=== PATIENT | female | born 1985 | race Caucasian/White ===

== ENCOUNTER 2019-09-08 08:52 | Observation (INO) | payer OTHER ==
[~2019-09-08 08:52] MED LIST: DEXAMETHASONE SOD PHOSPHATE 10 MG/ML 1 ML VIAL IV ONE; HEPARIN SODIUM,PORCINE 5,000 UNIT/ML 1 ML VIAL SQ ONE; HYDROmorphone 0.5 MG/0.5 ML SYRINGE IVP PRN; LACTATED RINGERS 1,000 ML IV SCH; MIDAZOLAM 2 MG/2 ML VIAL IV PRN; ONDANSETRON 4 MG/2 ML VIAL IVP ONE
[2019-09-08] MEDS ORDERED: ONDANSETRON 4 MG/2 ML VIAL ONE (09:10)
[2019-09-08] MEDS ORDERED: HEPARIN SODIUM,PORCINE 5,000 UNIT/ML 1 ML VIAL ONE (09:10)
--- NOTE | 2019-09-08 09:20 | P.GSHP ---
History of Present Illness H&P Date: 09/08/19 Chief Complaint: GERD This a 34-year-old female referred from Dr. Yousif Sagastume. MThe patient has had long-standing problems with reflux esophagitis. The patient underwent recent EGD is found have evidence of esophagitis. Patient has been well informed on the procedure of laparoscopic Tati fundoplication. The patient is aware the risk of the conversion to the open procedure, risk of injury to the stomach, liver and spleen. The patient is also a risk of recurrent GERD and dysphagia symptoms. The patient understands there is a postoperative diet of full liquids for 2 weeks after surgery. Past Medical History Past Medical History: Asthma, COPD, GERD/Reflux, Hypertension Additional Past Medical History / Comment(s): hx Endometriosis, vitamin D deficiency, migraines, hiatal hernia, ulcer, History of Any Multi-Drug Resistant Organisms: None Reported Past Surgical History: Section, Hysterectomy, Tonsillectomy Additional Past Surgical History / Comment(s): naila oophorectomy after hysterectomy, wisdom teeth extraction. ingrown toenail removed from naila great toes Past Anesthesia/Blood Transfusion Reactions: Family History of Problems w/ Anesthesia Additional Past Anesthesia/Blood Transfusion Reaction / Comment(s): family membe rs have problems waking up Smoking Status: Current every day smoker - Past Family History Father History Unknown: Yes Mother Family Medical History: Cancer Additional Family Medical History / Comment(s): hx blood clot in arm Brother(s) Additional Family Medical History / Comment(s): Patient states she has 3 stepbrothers and 3 stepsisters. She has 2 daughters. Patient is single. Medications and Allergies Home Medications Medication Instructions Recorded Confirmed Type Cetirizine HCl 10 mg PO DAILY 09/03/19 09/08/19 History Docusate Sodium [Dok] 100 mg PO DAILY 09/03/19 09/08/19 History Ergocalciferol [Vitamin D2] 50,000 unit PO ALDANA 09/03/19 09/08/19 History Estrogens, Conjugated [Premarin] 0.625 mg PO DAILY 09/03/19 09/08/19 History Omeprazole 20 mg PO AC-SUPPER PRN 09/03/19 09/08/19 History Omeprazole [PriLOSEC] 40 mg PO DAILY 09/03/19 09/08/19 History Paliperidone Palmitate [Invega 819 mg IM Q90D 09/03/19 09/08/19 History Trinza] buPROPion HCL [Wellbutrin XL] 300 mg PO DAILY 09/03/19 09/08/19 History cloNIDine HCL [Catapres] 0.1 mg PO BID PRN 09/03/19 09/08/19 History Allergies Allergy/AdvReac Type Severity Reaction Status Date / Time latex Allergy Rash/Hives Verified 09/08/19 09:07 pineapple Allergy Vomiting Verified 09/08/19 09:07 migraine medication Allergy Severe Unknown Uncoded 09/08/19 09:07 antibiotics Allergy Rash/Hives Uncoded 09/08/19 09:07 Surgical - Exam - General well developed, well nourished, no distress - Eyes PERRL - ENT normal pinna - Neck no masses - Respiratory normal expansion - Cardiovascular Rhythm: regular - Abdomen Abdomen: soft, non tender Assessment and Plan Assessment: GERD. We'll perform laparoscopic Tati fundal plication.
[2019-09-08] MEDS: LACTATED RINGERS 1,000 ML IV SCH ×2 (09:33→11:43)
[2019-09-08] MEDS ORDERED: diphenhydrAMINE 50 MG/ML 1 ML VIAL ONE (09:39)
[2019-09-08] MEDS ORDERED: diphenhydrAMINE 50 MG/ML 1 ML VIAL IVP ONE (09:40)
[2019-09-08] MEDS ORDERED: LIDOCAINE 1% INJ 10MG/ML (20 ML MDV) ONE (09:43)
[2019-09-08] MEDS ORDERED: KETOROLAC 30 MG/ML 1 ML VIAL ONE (09:43)
[2019-09-08] MEDS ORDERED: HYDROmorphone (PF) 1 MG/ML ONE (09:43)
[2019-09-08] MEDS ORDERED: GLYCOPYRROLATE 0.2 MG/ML 2 ML VIAL ONE (09:43)
[2019-09-08] MEDS ORDERED: PROPOFOL 10 MG/ML 20 ML VIAL IV ONE (09:43)
[2019-09-08] MEDS ORDERED: MIDAZOLAM 2 MG/2 ML VIAL ONE (09:43)
[2019-09-08] MEDS ORDERED: ROCURONIUM BROMIDE 10 MG/ML 5 ML VIAL IV ONE (09:43)
[2019-09-08] MEDS ORDERED: SUCCINYLCHOLINE CHLORIDE 100 MG/5 ML SYR IV ONE (09:43)
[2019-09-08] MEDS ORDERED: NEOSTIGMINE 1 MG/ML 10 ML VIAL ONE (09:43)
[2019-09-08] MEDS ORDERED: fentaNYL (PF) 50 MCG/ML 2 ML AMP ONE (09:43)
[2019-09-08] MEDS ORDERED: KETAMINE 10 MG/ML 20 ML VIAL ONE (09:43)
[2019-09-08] MEDS ORDERED: BUPIVACAIN-EPI 0.25%-1:200,000 30 ML VIAL SQ ONE (10:22)
[2019-09-08] MEDS ORDERED: LACTATED RINGERS 1,000 ML IV ONE (10:55)
[2019-09-08] MEDS ORDERED: ONDANSETRON 4 MG/2 ML VIAL IVP PRN (11:08)
--- NOTE | 2019-09-08 11:20 | P.OP ---
Date of Procedure: 09/08/19 Preoperative Diagnosis: GERD Postoperative Diagnosis: GERD Procedure(s) Performed: Laparoscopic Tati fundal plication Anesthesia: MINOR Surgeon: Shekhar Koehler Estimated Blood Loss (ml): 5 Pathology: none sent Condition: stable Disposition: PACU Description of Procedure: HarmThe patient was placed on the operating table in the supine position. The patient received general anesthesia. And was placed in dorsal lithotomy position. The patient was prepped and draped in the usual sterile fashion. The skin incision sites were anesthetized with 1% local Xylocaine. The skin was incised in the left periumbilical area and then using a blade less 5 mm trocar under direct visualization panel cavity was entered. After adequate insufflation the laparoscope was then placed into the peritoneal cavity. Next a 5 mm trochars placed in the right epigastric position. Another 5 millimeter trocar the right lateral position. Another 5 millimeter trocar in the left lateral position a 5 mm trocar is placed in the left epigastric position. And then the initial 5 mm trocar was exchanged for a 10 mm trocar. The left lateral lobe liver was retracted. The hernia was seen. The crural defect was then dissected using the Harmonic scissors device. A 360 crural dissection was performed the esophagus stomach was reduced back into the peritoneal Cavity. The crural defect was then closed using 2-0 Ethibond suture. Next the fundus of the stomach was mobilized using the [place] scissors device. and then a 58- [place]ian bougie dilator was placed oropharynx passed into the esophagus and stomach the fundal plication wrap was then performed by grasping the fundus p osteriorly and bringing it around the esophagus and stomach fundoplication was then performed using 2-0 Ethibond suture. Care was taken that the fundal location rested over top of the intra-abdominal esophagus. There was no injury seen to the stomach or esophagus. The dilator was then withdrawn. The abdomen was irrigated there is no bleeding seen. The trochars were then withdrawn and then skin incision sites were closed using 3-0 Monocryl suture Steri-Strips are applied. Patient thought procedure well and sent to recovery room in stable condition.ine
[2019-09-08] MEDS: D5-0.45% NACL WITH KCL 20MEQ/L 1,000 ML IV SCH ×2 (12:27→20:02)
[2019-09-08] MEDS ORDERED: PALIPERIDONE PALMITATE 819 MG IM SCH (13:30)
[2019-09-08] MEDS: HYDROmorphone 1 MG/ML 1 ML SYRINGE IVP PRN ×2 (14:29→20:03)
--- NOTE | 2019-09-08 15:29 | FL ---
EXAMINATION TYPE: FL esophagus cervic/pharynx DATE OF EXAM: 09/08/2019 HISTORY: Status post Tati fundoplication COMPARISON: NONE TECHNIQUE: A single contrast esophagram is performed utilizing air and barium. FINDINGS: Attention directed to the level of the gastroesophageal junction. Patient shows post Tati fundoplic ation change. There is no evident obstruction or leak. 32 seconds fluoroscopy time. 2 images obtained . IMPRESSION: No significant abnormality to suggest postop complication.
--- NOTE | 2019-09-08 15:52 | P.CONS ---
History of Present Illness - Reason for Consult Recommendations regarding antihypertensive medications - History of Present Illness Patient is a pleasant 32-year-old the female admitted for elective Tati fundoplication and I saw her in the immediate postoperative period still coming of deafness seizure is bit nauseous. Patient denied any fever chills nausea vomiting abdominal pain. Patient is on estrogen supplementation post hysterectomy. Review of Systems REVIEW OF SYSTEMS: CONSTITUTIONAL: No fever, no malaise, no fatigue. HEENT: No recent visual problems or hearing problems. Denied any sore throat. CARDIOVASCULAR: No chest pain, orthopnea, PND, no palpitations, no syncope. PULMONARY: No shortness of breath, no cough, no hemoptysis. GASTROINTESTINAL: No diarrhea, no vomiting, no abdominal pain. NEUROLOGICAL: No headaches, no weakness, no numbness. HEMATOLOGICAL: Denies any bleeding or petechiae. GENITOURINARY: Denies any burning micturition, frequency, or urgency. MUSCULOSKELETAL/RHEUMATOLOGICAL: Denies any joint pain, swelling, or any muscle pain. ENDOCRINE: Denies any polyuria or polydipsia. The rest of the 14-point review of systems is negative. Past Medical History Past Medical History: Asthma, COPD, GERD/Reflux, Hypertension Additional Past Medical History / Comment(s): hx Endometriosis, vitamin D deficiency, migraines, hiatal hernia, ulcer, History of Any Multi-Drug Resistant Organisms: None Reported Past Surgical History: Section, Hysterectomy, Tonsillectomy Additional Past Surgical History / Comment(s): naila oophorectomy after hysterectomy, wisdom teeth extraction. ingrown toenail removed from naila great toes Past Anesthesia/Blood Transfusion Reactions: Family History of Problems w/ Anesthesia Additional Past Anesthesia/Blood Transfusion Reaction / Comm: family members have problems waking up Past Psychological History: Anxiety, Bipolar, Depression, PTSD Smoking Status: Current every day smoker Past Alcohol Use History: None Reported Additional Past Alcohol Use History / Comment(s): smokes 1/2 PPD, for 22 yrs Past Drug Use History: None Reported Additional Drug Use History / Comment(s): denies - Past Family History Father History Unknown: Yes Mother Family Medical History: Cancer Additional Family Medical History / Comment(s): hx blood clot in arm Brother(s) Additional Family Medical History / Comment(s): Patient states she has 3 stepbrothers and 3 stepsisters. She has 2 daughters. Patient is single. Medications and Allergies Home Medications Medication Instructions Recorded Confirmed Type Cetirizine HCl 10 mg PO DAILY 09/03/19 09/08/19 History Docusate Sodium [Dok] 100 mg PO DAILY 09/03/19 09/08/19 History Ergocalciferol [Vitamin D2] 50,000 unit PO ALDANA 09/03/19 09/08/19 History Estrogens, Conjugated [Premarin] 0.625 mg PO DAILY 09/03/19 09/08/19 History Omeprazole 20 mg PO AC-SUPPER PRN 09/03/19 09/08/19 History Omeprazole [PriLOSEC] 40 mg PO DAILY 09/03/19 09/08/19 History Paliperidone Palmitate [Invega 819 mg IM Q90D 09/03/19 09/08/19 History Trinza] buPROPion HCL [Wellbutrin XL] 300 mg PO DAILY 09/03/19 09/08/19 History cloNIDine HCL [Catapres] 0.1 mg PO BID PRN 09/03/19 09/08/19 History Allergies Allergy/AdvReac Type Severity Reaction Status Date / Time latex Allergy Rash/Hives Verified 09/08/19 09:07 pineapple Allergy Vomiting Verified 09/08/19 09:07 migraine medication Allergy Severe Unknown Uncoded 09/08/19 09:07 antibiotics Allergy Rash/Hives Uncoded 09/08/19 09:07 Physical Exam Vitals: Vital Signs Temp Pulse Pulse Pulse Resp BP BP 09/08/19 15:35 76 18 137/83 09/08/19 14:35 74 18 134/85 09/08/19 13:35 76 16 133/88 09/08/19 13:05 76 18 153/96 09/08/19 12:35 72 18 138/88 09/08/19 12:20 79 18 133/86 09/08/19 12:05 81 18 126/86 09/08/19 11:50 98.2 F 76 18 142/97 09/08/19 11:29 86 14 177/71 09/08/19 11:14 88 14 185/90 09/08/19 10:59 97.4 F L 100 100 16 176/86 09/08/19 09:24 98.4 F 96 16 159/86 Pulse Ox 09/08/19 15:35 93 L 09/08/19 14:35 93 L 09/08/19 13:35 93 L 09/08/19 13:05 93 L 09/08/19 12:35 95 09/08/19 12:20 94 L 09/08/19 12:05 96 09/08/19 11:50 93 L 09/08/19 11:29 100 09/08/19 11:14 100 09/08/19 10:59 99 09/08/19 09:24 100 Intake and Output 09/08/19 09/08/19 09/08/19 06:59 14:59 22:59 Intake Total 1250 Output Total 50 Balance 1200 Intake: IV 1250 Output: Estimated Blood Loss 50 Other: Weight 118 kg PHYSICAL EXAMINATION: GENERAL: The patient is drowsy and oriented x3, not in any acute distress. Obese HEENT: Pupils are round and equally reacting to light. EOMI. No scleral icterus. No conjunctival pallor. Normocephalic, atraumatic. No pharyngeal erythema. No thyromegaly. CARDIOVASCULAR: S1 and S2 present. No murmurs, rubs, or gallops. PULMONARY: Chest is clear to auscultation, no wheezing or crackles. ABDOMEN: Soft, abdominal binder in place MUSCULOSKELETAL: No joint swelling or deformity. EXTREMITIES: No cyanosis, clubbing, or pedal edema. NEUROLOGICAL: Gross neurological examination did not reveal any focal deficits. SKIN: No rashes. Assessment and Plan Plan: -Hypertension: Patient is on clonidine on as-needed basis which will be held and will monitor her blood pressure depending on her blood pressure patient will be started on antidepressant medications. -Gastroesophageal reflux disease patient will be resumed on proton pump inhibitor -COPD without any significant exacerbation nicotine cessation counseling was provided -Status post hysterectomy patient is on hormone supplementation if agreeable by general surgery and patient will be started on this medication -Laparoscopic Tati's fundoplication: Pain medication postoperative management due to prophylaxis per primary service
[2019-09-08] MEDS ORDERED: KETOROLAC 30 MG/ML 1 ML VIAL IVP PRN (16:26)
[2019-09-08] MEDS: HEPARIN SODIUM,PORCINE 5,000 UNIT/ML 1 ML VIAL SQ SCH (20:03)
[2019-09-09] MEDS: D5-0.45% NACL WITH KCL 20MEQ/L 1,000 ML IV SCH (05:04)
[2019-09-09] MEDS: HYDROmorphone 1 MG/ML 1 ML SYRINGE IVP PRN (05:04)
[2019-09-09 08:05] VITALS: BP 112/58; PULSE 82; RESP 16; TEMP 97.6
[2019-09-09] MEDS: HEPARIN SODIUM,PORCINE 5,000 UNIT/ML 1 ML VIAL SQ SCH (08:12)
[2019-09-09] MEDS ORDERED: PANTOPRAZOLE 40 MG/10 ML VIAL IVP SCH (09:00)
[2019-09-09] MEDS ORDERED: buPROPion XL 300 MG TAB.ER.24H PO SCH (09:00)
[2019-09-09 11:03] VITALS: BMI 47.5
--- NOTE | 2019-09-09 11:25 | P.DS ---
Providers Date of admission: 09/09/19 05:37 Expected date of discharge: 09/09/19 Attending physician: Shekhar Koehler Consults: 09/08/19 11:08 Consult Physician Routine Consulting Provider: Alicia Castelan Consult Reason/Comments: Medical management Do you want consulting provider notified?: Yes Primary care physician: Yousif Sagastume MD Hospital Course: This is a 34-year-old female who underwent laparoscopic Tati fundoplication on 09/08/2019. Patient's postoperative arrival. Please see chart for details. Procedures: Laparoscopic Tati fundal plication Patient Condition at Discharge: Good Plan - Discharge Summary Discharge Rx Participant: No New Discharge Prescriptions: New Docusate [Colace] 100 mg PO BID #20 capsule HYDROcodone/APAP 5-325MG [Mather 5-325] 1 tab PO Q6HR PRN #10 tab PRN Reason: Pain No Action Omeprazole [PriLOSEC] 40 mg PO DAILY Omeprazole 20 mg PO AC-SUPPER PRN PRN Reason: Heartburn Cetirizine HCl 10 mg PO DAILY Estrogens, Conjugated [Premarin] 0.625 mg PO DAILY Ergocalciferol [Vitamin D2] 50,000 unit PO ALDANA buPROPion HCL [Wellbutrin XL] 300 mg PO DAILY Paliperidone Palmitate [Invega Trinza] 819 mg IM Q90D Docusate Sodium [Dok] 100 mg PO DAILY cloNIDine HCL [Catapres] 0.1 mg PO BID PRN PRN Reason: Anxiety Discharge Medication List Cetirizine HCl 10 mg PO DAILY 09/03/19 [History] Docusate Sodium [Dok] 100 mg PO DAILY 09/03/19 [History] Ergocalciferol [Vitamin D2] 50,000 unit PO ALDANA 09/03/19 [History] Estrogens, Conjugated [Premarin] 0.625 mg PO DAILY 09/03/19 [History] Omeprazole 20 mg PO AC-SUPPER PRN 09/03/19 [History] Omeprazole [PriLOSEC] 40 mg PO DAILY 09/03/19 [History] Paliperidone Palmitate [Invega Trinza] 819 mg IM Q90D 09/03/19 [History] buPROPion HCL [Wellbutrin XL] 300 mg PO DAILY 09/03/19 [History] cloNIDine HCL [Catapres] 0.1 mg PO BID PRN 09/03/19 [History] Docusate [Colace] 100 mg PO BID #20 capsule 09/09/19 [Rx] HYDROcodone/APAP 5-325MG [Mather 5-325] 1 tab PO Q6HR PRN #10 tab 09/09/19 [Rx] Follow up Appointment(s)/Referral(s): Shekhar Koehler MD [STAFF PHYSICIAN] - 09/23/19 1:10 pm (You have a follow up appointment with Dr Koehler on Monday, September 23, 2019 at 1:10 pm.) Patient Instructions/Handouts: *Surgery [facility] - ([facility]) Lap Tati Fundiplication Post-Op Instructions, Pain Management After Surgery (DC), Narcotic Safety (DC) Activity/Diet/Wound Care/Special Instructions: Activity as tolerated, rest as needed. No driving. No hot tubs, no pools, no swimming, no bath tubs. No house work. No lifting anything heavier than a gallon of milk. Drink plenty of fluids. Full liquid diet for [address] Koehler if you develop a fever or chills, increase in pain, inability to urinate, vomiting, or if you have any other questions or concerns.
== END 2019-09-09 12:27 | disposition home or self-care (01) ==
LOC: OR 08:52 → 6PED 11:38 → OR 09-09 05:37 → 6PED 09-09 05:37
PROVIDERS: ADMIT Surgery; ATTEND Surgery
DX: K21.0 Gastro-esophageal reflux disease with esophagitis (principal); J44.9 Chronic obstructive pulmonary disease, unspecified; I10 Essential (primary) hypertension; E55.9 Vitamin D deficiency, unspecified; F43.10 Post-traumatic stress disorder, unspecified; F31.9 Bipolar disorder, unspecified; F41.9 Anxiety disorder, unspecified; F17.210 Nicotine dependence, cigarettes, uncomplicated; Z90.710 Acquired absence of both cervix and uterus; Z79.899 Other long term (current) drug therapy; Z79.890 Hormone replacement therapy; Z88.1 Allergy status to other antibiotic agents; Z91.040 Latex allergy status; Z88.8 Allergy status to other drugs, medicaments and biological substances; Z91.018 Allergy to other foods; Z84.89 Family history of other specified conditions; Z80.9 Family history of malignant neoplasm, unspecified; Z82.49 Family history of ischemic heart disease and other diseases of the circulatory system
CPT/HCPCS: 74210; 43280; G0378; J1200; J1644 ×2; J1100; J0690; J2405; J1170 ×2; C9113; Q9967

== ENCOUNTER → 2020-10-04 | Outpatient (CLI) | payer OTHER ==
--- NOTE | 2020-10-05 07:02 | CT ---
EXAMINATION TYPE: CT chest w con DATE OF EXAM: 10/04/2020 COMPARISON: Chest x-ray June 02, 2014 HISTORY: Hx Covid pneumonia, pt c/o SOB, cough CT DLP: 478.10 mGycm. Automated Exposure Control for Dose Reduction was Utilized. TECHNIQUE: CT scan of the thorax is performed following with IV Contrast, patient injected with 100 mL of Isovue 300. FINDINGS: LUNGS: The lungs are grossly clear, there is no concerning suspicious groundglass opacity or focal co nsolidation. No greater than 5 mm pulmonary nodules or masses. Tiny bibasilar pleural effusions are seen. No pneumothorax seen bilaterally The tracheobronchial tree is patent. MEDIASTINUM: There are no greater than 1 cm hilar or mediastinal lymph nodes. Tiny anterior inferior pericardial effusion is seen. No cardiomegaly. OTHER: Surgical changes near diaphragmatic hiatus presumed from Alberto fundoplication surgical repair . Hemangioma involving T5 vertebra. IMPRESSION: Tiny basilar bilateral pleural effusions. No acute focal infiltrate. No significant chron ic parenchymal changes.
== END | disposition home or self-care (01) ==
LOC: RADCTMAIN 15:07
PROVIDERS: ATTEND Internal Medicine Critical Care Medicine
DX: J90 Pleural effusion, not elsewhere classified (principal); Z86.16 Personal history of COVID-19
CPT/HCPCS: 71260; Q9967

== ENCOUNTER 2020-10-15 11:46 | Day surgery (SDC) | payer OTHER ==
[2020-10-14 11:31] VITALS: BMI 43.9
[~2020-10-15 11:46] MED LIST changes: +ALBUTEROL NEB (CONC) 2.5 MG/0.5 ML INHALATION ONE; +ATROPINE SULFATE 0.4 MG/ML 1 ML VIAL IM ONE; -DEXAMETHASONE SOD PHOSPHATE 10 MG/ML 1 ML VIAL IV ONE; -HEPARIN SODIUM,PORCINE 5,000 UNIT/ML 1 ML VIAL SQ ONE; -HYDROmorphone 0.5 MG/0.5 ML SYRINGE IVP PRN; +LIDOCAINE 2% (PF) 20 MG/ML 5 ML VIAL INHALATION ONE; +LIDOCAINE VISCOUS 300 MG/15 ML CUP MUCOUS MEM ONE; -MIDAZOLAM 2 MG/2 ML VIAL IV PRN; -ONDANSETRON 4 MG/2 ML VIAL IVP ONE
[2020-10-15] MEDS ORDERED: LACTATED RINGERS 1,000 ML IV ONE (12:11)
[2020-10-15] MEDS ORDERED: LIDOCAINE 1% INJ 10MG/ML (20 ML MDV) ONE (12:43)
[2020-10-15] MEDS ORDERED: PROPOFOL 10 MG/ML 20 ML VIAL IV ONE (12:43)
[2020-10-15] MEDS ORDERED: KETAMINE 10 MG/ML 20 ML VIAL ONE (12:43)
[2020-10-15] MEDS ORDERED: LIDOCAINE 2% INJ 20 MG/ML INTRATRACH ONE (12:57)
[2020-10-15 13:25] VITALS: BP 155/70; PULSE 100; RESP 22
--- NOTE | 2020-10-15 20:12 | OP ---
OPERATIVE REPORT PULMONARY/CRITICAL CARE PROCEDURE NOTE: PROCEDURE: Bronchoscopy, airway examination, therapeutic lavage, BAL. PREOPERATIVE DIAGNOSIS: Chronic cough and shortness of breath. POSTOPERATIVE DIAGNOSIS: Chronic cough and shortness of breath. OPERATORS: 1. Dr. Hale. 2. Dr. Gore. Shira Leija CRNA, provided general anesthesia. The patient's procedure was done in room #1 Endoscopy. There was informed consent and universal timeout. After the patient was adequately sedated and being fully monitored, the bronchoscope was inserted through the patient's right nostril. It passed through the nasopharynx into the oropharynx. The hypopharynx was identified and topicalized. The hypopharyngeal structures, including anterior commissure, true cords, false cords, arytenoids, valleculae, epiglottis and other structures all appeared normal. The hypopharynx was crowded. After topicalization, the bronchoscope was pushed through the glottic opening into the trachea. The trachea appeared relatively normal. The tracheal maddie was sharp. Next, there was topicalization of the right mainstem and left mainstem. The right upper lobe and its 3 segments, the right middle lobe and its 2 segments, the right lower lobe and its 5 segments, the left upper lobe proper and its 2 segments, the lingula and its 2 segments, and the left lower lobe and its 4 segments all had similar findings of moderate bronchitis. There was diffuse erythema and hyperemia of the airways. There were some secretions noted throughout. They were mostly thin and frothy. There was no dominant mass or tumor. There was some mucosal friability. The bronchoscope was wedged into the right middle lobe. The BAL took place. There was no immediate complication. The fluid was sent for analysis. Additional secretions were suctioned. The patient tolerated the procedure well without difficulty. The bronchoscope was withdrawn. The patient will be recovered. MMODL / IJN: [id number] /
[2020-10-15 22:29] LABS: Appearance,BF Hazy; Nucleated Cells, Body Fluid 15 /uL; RBC, Body Fluid 65 /uL
== END 2020-10-15 13:35 | disposition home or self-care (01) ==
LOC: ORWHC2ENDO 11:46
PROVIDERS: ATTEND Internal Medicine Critical Care Medicine
DX: R06.02 Shortness of breath (principal); R05 Cough; Z86.16 Personal history of COVID-19; I10 Essential (primary) hypertension; J44.9 Chronic obstructive pulmonary disease, unspecified; F17.210 Nicotine dependence, cigarettes, uncomplicated; F43.10 Post-traumatic stress disorder, unspecified; G43.909 Migraine, unspecified, not intractable, without status migrainosus; K21.9 Gastro-esophageal reflux disease without esophagitis; Z79.51 Long term (current) use of inhaled steroids; Z91.040 Latex allergy status
CPT/HCPCS: 31624; 88108; 88305; 89050; 87252; 87070; 87205; 87116; 87102; 87206; J2001 ×2; J0461; J2704; 87496; 87498; 87502; 87529; 87634; 87798

== ENCOUNTER → 2023-11-28 | Outpatient (CLI) | payer OTHER ==
[2023-11-28 14:09] VITALS: BP 127/88; PULSE 80; RESP 16; TEMP 98.4
--- NOTE | 2023-11-28 15:06 | P.SLEEP ---
History of Present Illness DATE: 11/28/2023 CONSULTATION/NEW PATIENT EVALUATION HISTORY OF PRESENT ILLNESS/SLEEP-WAKE EVALUATION: 68-year-old lady had been e valuated in the sleep center for possible obstructive sleep apnea hypopnea syndrome. SLEEP SCHEDULE: Usually sleep schedule from 8 PM to 5:30 AM on weekdays and from 10 PM to 8 AM on weekend. FALLING ASLEEP: No problems with falling asleep. DURING SLEEP: Patient snores and wakes up from sleep 3 times with nocturia no history of hypnogogical hallucinations, sleep paralysis, or cataplexy. DURING THE DAY/WAKE STATE: In the morning patient wake up tired, has difficulties to pay attention, has problems with memory, concentration, irritability depression. [place] sleepiness scale is 9. Patient may take 2 naps during the day. PAST MEDICAL HISTORY: Bipolar, asthma. PAST SURGICAL HISTORY: Hysterectomy, hernia repair. MEDICATIONS: Please see below. SOCIAL HISTORY: Please see below. FAMILY HISTORY: Heart problems, epilepsy, stroke, fibromyalgia, cancer, insomnia, thyroid problems, diabetes, mental illness. REVIEW OF SYSTEMS: Snoring, multiple awakenings from sleep, sleepiness during the day. No fevers. No double vision. No recent chest pain. No shortness of breath. No abdominal pain. No bleeding episodes. No blood in urine. No seizure episodes. PHYSICAL EXAMINATION: GENERAL: A pleasant patient without any distress. VITAL SIGNS: Please see below, weight 236 pounds, BMI 43.1. HEENT: PERRLA, EOMI. Evaluation of oropharynx showed tongue protrudes midline, low position of soft palate Mallampati 4. NECK: Supple. No JVD. Thyroid is not palpable. 15 inches in circumference. LUNGS: Clear to percussion and to auscultation. Good air exchange. No wheezing or rhonchi. HEART: S1, S2 regular. No murmurs, gallops or rubs. ABDOMEN: Soft and nontender. Bowel sounds are present. No organomegaly appreciated. EXTREMITIES: No clubbing or cyanosis. RECREATION LEADER: Awake, alert, and oriented x3. Cranial nerves 2 to 7 intact. There is no fasciculation or atrophy noted. No focal deficits observed. ASSESSMENT: 1. Loud snoring, multiple awakenings from sleep, extremely low position of soft palate Mallampati 4, sleepiness. Obstructive sleep apnea hypopnea syndrome. 2. Obesity, BMI 43.1. 3. Bipolar. 4. Asthma. 5 status post hysterectomy. 6 . Status post hernia repair. PLAN: 1. Polysomnography for evaluation of patient's breathing during sleep. 2. Following plan after reading sleep study. 3. Preferable position during sleep on the side. 4. No driving if patient feels any sleepiness. Patient is aware of civil and criminal liability for unsafe driving. 5. Sleep hygiene with regular sleep time for at least 7.5-8 hours. 6. Watching and losing weight. Thank you very much for referring this patient for consultation. Sincerely, Del Garcia MD, PhD, FAASM. Diplomat of [employer], Sleep Medicine Board by [employer] [facility] [place] cc: Gudelia Hardin Past Medical History Past Medical History: Asthma, COPD, GERD/Reflux, Hypertension Additional Past Medical History / Comment(s): SOB and coughing,hx Endometriosis, vitamin D deficiency, migraines, hiatal hernia, ulcer History of Any Multi-Drug Resistant Organisms: None Reported Past Surgical History: Section, Hysterectomy, Tonsillectomy Additional Past Surgical History / Comment(s): naila oophorectomy after hysterectomy, wisdom teeth extraction. ingrown toenail removed from naila great toes,hiatal hernia repair Past Anesthesia/Blood Transfusion Reactions: Family History of Problems w/ Anesthesia Additional Past Anesthesia/Blood Transfusion Reaction / Comment(s): family members have problems waking up Past Psychological History: Anxiety, Bipolar, Depression, PTSD Smoking Status: Current every day smoker Past Alcohol Use History: None Reported Additional Past Alcohol Use History / Comment(s): smokes 1 PPD, for 22 yrs Past Drug Use History: None Reported Additional Drug Use History / Comment(s): denies - Past Family History Daughter(s) Family Medical History: Asthma, GERD/Reflux, Sleep Apnea/CPAP/BIPAP Additional Family Medical History / Comment(s): epilepsy, snoring Father History Unknown: Yes Family Medical History: No Reported History Mother Family Medical History: Cancer, Coronary Artery Disease (CAD), Hyperlipidemia, Hypertension Additional Family Medical History / Comment(s): hx blood clot in arm Brother(s) Additional Family Medical History / Comment(s): Patient states she has 3 stepbrothers and 3 stepsisters. She has 2 daughters. Patient is single. Medications and Allergies Home Medications Medication Instructions Recorded Confirmed Type Albuterol Sulfate [Proair Hfa] 1 - 2 puff INHALATION Q6HR PRN 10/14/20 11/28/23 History Paliperidone Palmitate [Invega 819 mg IM Q90D 10/14/20 11/28/23 History Trinza] Sertraline [Zoloft] 50 mg PO QAM 10/14/20 10/14/20 History Semaglutide [Wegovy] 0.5 mg SQ WEEKLY 11/28/23 11/28/23 History Allergies Allergy/AdvReac Type Severity Reaction Status Date / Time latex Allergy Rash/Hives Verified 10/14/20 11:25 pineapple Allergy Vomiting Verified 10/14/20 11:25 migraine medication Allergy Severe Unknown Uncoded 10/14/20 11:25 antibiotics Allergy Rash/Hives Uncoded 10/14/20 11:25 Physical Exam Vitals: Vital Signs Temp Pulse Resp BP Pulse Ox 11/28/23 14:08 98.4 F 80 16 127/88 97 Intake and Output 11/28/23 11/28/23 11/28/23 06:59 14:59 22:59 Other: Weight 107.048 kg Sleep Note - Sleep Data ESS Total: 9 - Sleep Note Sleep Note: Temperature: 98.4 F Pulse Rate: 80 Respiratory Rate: 16 Blood Pressure: 127/88 SpO2: 97 Height: 5 ft 2 in Weight: 107.048 kg BMI: Neck Circumference: 15
== END ==
LOC: 3 N SLEEP 13:46
PROVIDERS: ATTEND Internal Medicine
CPT/HCPCS: 99211

== ENCOUNTER 2023-12-13 19:35 | Outpatient (CLI) | payer OTHER ==
--- NOTE | 2023-12-19 15:03 | P.PCN ---
Description of Procedure: POLYSOMNOGRAPHY REPORT PROCEDURE(S)/DATE(S): Polysomnography 12/13/2023 CLINICAL: Patient has been seen in the sleep center for evaluation of obstructive sleep apnea-hypopnea syndrome. Please see my consultation. Sleep study has been done for evaluation of patient breathing during the sleep. PROCEDURE: The standard montage for clinical polysomnography included the electroencephalogram, the electrooculogram, the mentalis surface electromyography and Lead II cardiography. The respiratory battery consisted of measurements of nasal/buccal air flow, pressure transducer measurements from nose, thoracic and/or abdominal effort and intercostal surface electromyography. Video monitoring has been done to check for any parasomnia events. Nocturnal oxyhemoglobin saturations were obtained by finger oximetry. Step-hobbs titration with positive airway pressure was utilized to control the respiratory events, if necessary. RESULTS: During the diagnostic sleep study sleep efficiency was slightly decreased to 85.5%. Latency to sleep onset was borderline 27.5 min. Sleep architecture showed stage NI was slightly short 3.6%, Delta sleep was normal at 10.4%, REM sleep was normal 20.7%. Respiratory channel showed 7 obstructive apneas, 0 mixed apneas, 19 central apneas, 87 hypopneas with lowest oxygen level 81%. Total apnea hypopnea index was 16.9. Heart rate was in the range between 59 and 72, average 65. EMG showed 24.1 periodic limb movements per hour with 0.4 micro-arousals per hour. IMPRESSIONS: 1. Moderate obstructive sleep apnea hypopnea syndrome. 2. Moderate periodic limb movements have been documented. Please see other impressions from consultation PLAN: 1. The patient will have PAP titration for correction of respiratory abnormalities during the sleep. 2. Losing weight program. 3. Sleep hygiene with regular time in bed for at least 7-1/2 hours. 4. No driving if feeling sleepiness. 5. Please check iron profile including ferritin level. Low level of iron may increase the risk for periodic limb movements. Thank you very much for allowing me to participate in the management of your patient. Sincerely, Del Garcia MD, PhD, FAASM. Diplomat of [employer], Sleep Medicine Board by [employer] Unit Director of [facility] [place] cc: Gudelia Madison MD
== END 2023-12-14 05:00 | disposition home or self-care (01) ==
LOC: 3 N SLEEP 19:35
PROVIDERS: ATTEND Internal Medicine
CPT/HCPCS: 95810

== ENCOUNTER 2024-01-13 19:33 | Outpatient (CLI) | payer OTHER ==
--- NOTE | 2024-01-16 11:31 | P.PCN ---
Description of Procedure: CLINICAL: Titration with positive air pressure has been done for correction of respiratory abnormalities during sleep. DESCRIPTION OF PROCEDURE: The standard montage for clinical polysomnography included the electroencephalogram, the electrocardiogram, the mentalis surface electromyography and Lead II cardiography. The respiratory battery consisted of measurements of nasal /buccal air flow, pressure transducer measurements from the nose, thoracic and /or abdominal effort and intercostal surface electromyography. Video monitoring has been done to check for any parasomnia events. Nocturnal oxyhemoglobin saturations were obtained by finger oximetry. Step-hobbs titration with positive airway pressure was utilized to control respiratory events. Raw data of sleep recording has been reviewed and is adequate. RESULTS: Sleep efficiency was slightly decreased to 84.7%. Latency to sleep onset was normal 19.0 minutes.]. Sleep architecture showed stage N1 was slightly short 3.7%, Delta sleep was absent 0%, REM sleep was normal 23.0%. Heart rate was minimum 65 BPM, maximum 75 BPM, average 70 BPM. EMG showed 2.9 periodic limb movements per hour with 0.3 micriarousals per hour. PAP titration have been done with CPAP up to the pressure 10 cm H2O. The best results were at the pressure 9 cm H2O. Apnea hypopnea index reduced to 0.9. IMPRESSION: 1. Obstructive sleep apnea hypopnea syndrome mostly on controle with PAP treatment. 2. No significant periodic limb movements have been documented. Please see other impressions from consultation. PLAN: 1. The patient will have treatment with positive air pressure equipment with the level of pressure AutoPAP 5-10 cm H2O and should use it every night for the whole night. 2. Watching and losing weight. 3. Sleep hygiene with regular time in bed for at least 8 hours. 4. No driving if feeling any sleepiness. 5. I will see the patient for follow up visit to explain the results of the test, recommendations, check compliance with treatment and make any necessary adjustment related to mask fitting, pressure and humidification. Thank you very much for allowing me to participate in the management of your patient. Sincerely, Del Garcia MD, PhD, FAASM Diplomat of [employer] Sleep Medicine Board of [employer] Relations Mgr of [facility] [place] cc: Gudelia Madison MD
== END 2024-01-14 05:15 | disposition home or self-care (01) ==
LOC: 3 N SLEEP 19:33
PROVIDERS: ATTEND Internal Medicine
DX: G47.33 Obstructive sleep apnea (adult) (pediatric) (principal); F17.200 Nicotine dependence, unspecified, uncomplicated; Z88.1 Allergy status to other antibiotic agents; Z91.040 Latex allergy status; Z91.018 Allergy to other foods; Z88.8 Allergy status to other drugs, medicaments and biological substances
CPT/HCPCS: 95811

== ENCOUNTER → 2024-04-02 | Outpatient (CLI) | payer OTHER ==
[2024-04-02 14:58] VITALS: BP 134/84; PULSE 88; RESP 18; TEMP 98.8
--- NOTE | 2024-04-02 15:28 | P.PROGSL ---
Subjective DATE: 04/02/2024 FOLLOW UP VISIT. Patient with obstructive sleep apnea hypopnea syndrome return to sleep center for follow-up visit. Recently patient had sleep study which documented obstructive sleep apnea hypopnea syndrome. Patient was initiated on PAP therapy and today is first visit after treatment was started. Patient was able to use PAP equipment every night but for short period of time. Patient feels discomfort with your nasal mask. [place] sleepiness scale is continue to be increased to 12. I checked information from PAP unit. PAP unit pressure 5-10, average 7.3 cm H2O. Usage is 90% but only 3% for more then 4 hours, average 2 hours per night. Leak is 7.0 l/m, which is in acceptable range. Apnea Hypopnea Index is 0.7, which is normal. MEDICATIONS: Please see below During physical exam: GENERAL: A pleasant patient without any distress. VITAL SIGNS: Please see below, weight is 200 pounds. HEENT: PERRLA, EOMI.low position of soft palate, Mallapati 4 . NECK: Supple. No JVD. LUNGS: Clear to percussion and to auscultation. Good air exchange. No wheezing or rhonchi. HEART: S1, S2 regular. ABDOMEN: Soft and nontender.[] EXTREMITIES: No clubbing or cyanosis. MEDICAL PRACTITIONERS: Awake, alert, and oriented x3. No focal deficit. Impressions: 1. Obstructive sleep apnea-hypopnea syndrome. Patient is using CPAP equipment every night but short period of time. 2. Mild obesity, patient lost 36 pounds since previous visit. 3. Bipolar. 4. Asthma. 5. Status post hernia repair. 6. Status post hysterectomy. Plan: 1. Continue using PAP equipment every night for the whole night. Patient promised to follow recommendations. 2. To change air filter at least 1-2 times per month. 3. PAP unit should stay lower then position of the head. 4. Advised patient to remove all remaining water from humidifier canister daily and make it dry after each usage. Refill canister with fresh distilled water before each usage. 5. Sleep hygiene with regular time in bed for at least 8 hours. 6. Precautions related to driving. No driving if feel any sleepiness. 7. I will maintain prescription for PAP supplies including mask, tube, filters. 8. Follow up visit in 6 weeks. 9. Watching and losing weight. Thank you very much for allowing me to participate in the management of your patient. Del Garcia MD, PhD, FAASM. Diplomat of [employer] [employer], Sleep Medicine Board by [employer] Map Clerk of [facility] [place] Objective - Vital Signs Vital Signs: Vital Signs Temp 98.8 F 04/02/24 14:57 Pulse 88 04/02/24 14:57 Resp 18 04/02/24 14:57 BP 134/84 04/02/24 14:57 Pulse Ox 95 04/02/24 14:57 FiO2 Intake & Output 04/01/24 04/02/24 04/02/24 18:59 06:59 18:59 Weight 90.718 kg Home Medications: Home Medications Medication Instructions Recorded Confirmed Type Albuterol Sulfate [Proair Hfa] 1 - 2 puff INHALATION Q6HR PRN 10/14/20 11/28/23 History Paliperidone Palmitate [Invega 819 mg IM Q90D 10/14/20 11/28/23 History Trinza] Sertraline [Zoloft] 50 mg PO QAM 10/14/20 10/14/20 History Semaglutide [Wegovy] 0.5 mg SQ WEEKLY 11/28/23 11/28/23 History
== END ==
LOC: 3 N SLEEP 14:18
PROVIDERS: ATTEND Internal Medicine
DX: G47.33 Obstructive sleep apnea (adult) (pediatric) (principal); E66.9 Obesity, unspecified; F31.9 Bipolar disorder, unspecified; J45.909 Unspecified asthma, uncomplicated; F17.210 Nicotine dependence, cigarettes, uncomplicated; Z68.41 Body mass index [BMI] 40.0-44.9, adult; Z90.710 Acquired absence of both cervix and uterus; Z48.815 Encounter for surgical aftercare following surgery on the digestive system; Z99.89 Dependence on other enabling machines and devices; Z91.040 Latex allergy status; Z91.018 Allergy to other foods; Z88.8 Allergy status to other drugs, medicaments and biological substances; Z88.1 Allergy status to other antibiotic agents
CPT/HCPCS: 99212

== ENCOUNTER → 2024-05-14 | Outpatient (CLI) | payer OTHER ==
[2024-05-14 13:26] VITALS: BP 119/78; PULSE 72; RESP 16; TEMP 98.5
--- NOTE | 2024-05-14 13:44 | P.PROGSL ---
Subjective DATE: 05/14/2024 FOLLOW UP VISIT. Patient with obstructive sleep apnea hypopnea syndrome return to sleep center for follow-up visit. Information from previous visit have been reviewed. Patient is using PAP equipment every night for the whole night, getting PAP supplies in time. The patient does not have significant problems with the mask, PAP unit and humidification. Wink sleepiness scale is borderline 10. I checked information from PAP unit. PAP unit pressure 5-10, average 7.2 cm H2O. Usage is 90% and around 70% for more then 4 hours, average 4.2 hours per night. Leak is 4 l/m, which is in acceptable range. Apnea Hypopnea Index is 1.1, which is normal. MEDICATIONS have been reviewed, please see below. During physical exam: GENERAL: A pleasant patient without any distress. VITAL SIGNS: Please see below, weight is 190 lbs. HEENT: PERRLA, EOMI.low position of soft palate, Mallapati 4. NECK: Supple. No JVD. LUNGS: Clear to percussion and to auscultation. Good air exchange. No wheezing or rhonchi. HEART: S1, S2 regular. ABDOMEN: Soft and nontender.[] EXTREMITIES: No clubbing or cyanosis. SET OFF BLOCKER: Awake, alert, and oriented x3. No focal deficit. Impressions: 1. Obstructive sleep apnea-hypopnea syndrome. Patient demonstrated borderline compliance with treatment, benefiting from treatment. 2. Mild obesity, patient lost 10 pounds comparing with previous visit. 3. Bipolar. 4. Asthma. 5. Status post hysterectomy. 6. Status post hernia repair. Plan: 1. Continue using PAP equipment every night for the whole night. 2. Sleep hygiene with regular time in bed for at least 7.5-8 hours 3. PAP unit should stay lower then position of the head. 4. Advised patient to remove all remaining water from humidifier canister daily and make it dry after each usage. Refill canister with fresh distilled water before each usage. 5. Watching weight. 6. Precautions related to driving. No driving if feel any sleepiness. 7. I will maintain prescription for PAP supplies including mask, tube, filters. 8. Follow up visit in 8 months or earlier if patient has any problems. Thank you very much for allowing me to participate in the management of your patient. Del Garcia MD, PhD, FAASM. Diplomat of [employer], Sleep Medicine Board by [employer] Manager [employer] of [facility] [place] Objective - Vital Signs Vital Signs: Vital Signs Temp 98.5 F 05/14/24 13:24 Pulse 72 05/14/24 13:24 Resp 16 05/14/24 13:24 BP 119/78 05/14/24 13:24 Pulse Ox 96 05/14/24 13:24 FiO2 Intake & Output 05/13/24 05/14/24 05/14/24 18:59 06:59 18:59 Weight 86.183 kg Home Medications: Home Medications Medication Instructions Recorded Confirmed Type Albuterol Sulfate [Proair Hfa] 1 - 2 puff INHALATION Q6HR PRN 10/14/20 11/28/23 History Paliperidone Palmitate [Invega 819 mg IM Q90D 10/14/20 11/28/23 History Trinza] Sertraline [Zoloft] 50 mg PO QAM 10/14/20 10/14/20 History Semaglutide [Wegovy] 0.5 mg SQ WEEKLY 11/28/23 05/14/24 History Fluticasone/Umeclidin/Vilanter See Rx Instructions .ROUTE .COMPLEX 05/14/24 05/14/24 History [Trelegy Ellipta 200-62.5-25]
== END ==
LOC: 3 N SLEEP 13:01
PROVIDERS: ATTEND Internal Medicine
DX: G47.33 Obstructive sleep apnea (adult) (pediatric) (principal); E66.9 Obesity, unspecified; J45.909 Unspecified asthma, uncomplicated; F31.9 Bipolar disorder, unspecified; F17.210 Nicotine dependence, cigarettes, uncomplicated; Z98.890 Other specified postprocedural states; Z90.710 Acquired absence of both cervix and uterus; Z91.040 Latex allergy status; Z91.018 Allergy to other foods; Z88.8 Allergy status to other drugs, medicaments and biological substances; Z88.1 Allergy status to other antibiotic agents
CPT/HCPCS: 99212